=== PATIENT | female | born 1970 | race Caucasian/White ===

== ENCOUNTER 2023-10-28 19:05 | Emergency (ER) | payer BC ==
[2023-10-28 19:19] VITALS: BP 124/78; PULSE 86; RESP 20; TEMP 98.2; BMI 34.5
[2023-10-28 20:04] LABS: BASO % 0.6 % (0-2.0); EOS % 1.5 % (0-4.5); HEMATOCRIT 38.8 % (32.4-45.2); HEMOGLOBIN 12.9 GM/dL (10.7-15.3); LYMPH % 27.2 % (8-40); MCH 28.1 pg (25.7-33.7); MCHC 33.1 g/dl (32.0-36.0); MEAN CELL VOLUME 84.7 fl (80-96); MEAN PLT VOLUME 9.1 fl (7.5-11.1); MONO % 6.1 % (3.8-10.2); NEUT % 64.6 % (42.8-82.8); PLATELET COUNT 216 10^3/uL (134-434); RBC 4.58 M/mm3 (3.60-5.2); RDW 13.3 % (11.6-15.6); WHITE BLOOD COUNT 8.3 K/mm3 (4.0-10.0)
[2023-10-28 20:28] LABS: CALCIUM 9.2 mg/dL (8.5-10.1)
[2023-10-28 20:30] LABS: BLOOD UREA NITROGEN 14.1 mg/dL (7-18); INR 1.04 (0.83-1.09); PROTHROMBIN TIME (PATIENT) 12.1 SEC (9.7-13.0)
[2023-10-28 20:33] LABS: ACTIVATED PTT 26.2 SECONDS (25.2-36.5); CREATININE 0.8 mg/dL (0.55-1.3)
[2023-10-28 20:34] LABS: BILIRUBIN,TOTAL 0.4 mg/dL (0.2-1); TOT PROT 6.7 g/dl (6.4-8.2)
[2023-10-28] MEDS ORDERED: CLINDAMYCIN HCL 300 MG CAPSULE PO ONE (20:40)
[2023-10-28] MEDS ORDERED: CLINDAMYCIN HCL 150 MG CAPSULE (FP) ONE (21:33)
== END 2023-10-28 21:45 | disposition home or self-care (01) ==
LOC: JER 19:05
PROC: 0HQ8XZZ Repair Buttock Skin, External Approach (ICD-10-PCS; principal; 2023-10-28)
DX: S31.829A Unspecified open wound of left buttock, initial encounter (principal); L02.31 Cutaneous abscess of buttock; X58.XXXA Exposure to other specified factors, initial encounter
CPT/HCPCS: 36415; 80053; 85025; 85610; 85730; 86850; 86900; 86901; 99283-25